=== PATIENT | female | born 1995 | race Caucasian/White ===

== ENCOUNTER 2024-06-02 14:41 | Outpatient (AMB) | payer OTHER, SELFPAY ==
[2024-06-02 14:46] VITALS: BP 122/64; PULSE 75; O2SAT 98; BMI 27.3
--- NOTE | 2024-06-02 14:46 | MHC.PC.OV ---
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 Required: No Allergies pine nut [PINE NUT] Allergy (Severe, Verified 06/02/24 15:05) RASH AND THROAT CLOSING mold [MOLD] Allergy (Unknown, Verified 06/02/24 15:05) Sneezing oxycodone Adverse Reaction (Mild, Verified 06/02/24 15:05) Palpitations mold Allergy (Unknown, Uncoded 06/02/24 15:05) Sneezing Medication List - Last Reconciled 06/02/24 by Yanni Flores PA-C No Known Home Meds Tobacco use date assessed: 06/02/24 Dental Screening Dental Screen Date: 06/02/24 Did you have a dental visit in the last 12 months?: Yes Did you have a dental problem in the last 6 months where you did not have access to dental care?: No Was dental information given to patient?: Patient has dentist HPI establish care HPI Details 28-year-old female coming to the office for the 1st time. Previously being seen by primary care [place] but has not been seen in over 4 years. She follows with gynecology every 6 months for control and abnormal Pap smears. Last week she was having right eye pain and pressure and was seen by eye doctor and referred to eyeglass fitter and dentist. Workup was negative and I pain resolved spontaneously. She has no acute concerns today. 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 1. Little interest or pleasure in doing things: not at all 2. Feeling down, depressed, or hopeless: not at all 3. Trouble falling or staying asleep, or sleeping too much: not at all 4. Feeling tired or having little energy: not at all 5. Poor appetite or overeating: not at all 6. Feeling bad about yourself - or that you are a failure or have let yourself or your family down: not at all 7. Trouble concentrating on things, such as reading the newspaper or watching television: not at all 8. Moving or speaking so slowly that other people could have noticed. Or the opposite - being so fidgety or restless that you have been moving around a lot more than usual: not at all 9. Thoughts that you would be better off or of hurting yourself in some way: not at all Total score: 0 Source: Developed by Drs. Kishor Bonilla, Desiree Alcala, Everette Cunha and colleagues, with an educational bk from [employer]. Thrive Questionnaire Date Thrive assessed: 05/31/24 I am a: Patient What is your living situation today?: I have a steady place to live Within the past 12 months, did the food you bought not last and you didn't have the money to get more?: Never true Within the past 12 months, did you worry whether your food would run out before you got money to buy more?: Never true Do you have trouble paying for medicines?: No Do you have trouble getting transportation to medical appointments?: No Do you have trouble paying your heating and electricity bill?: No Do you have trouble taking care of your child, family member or friend?: No Do you have trouble with day-to-day activities such as bathing, preparing meals, shopping, managing finances, etc.?: No Are you currently unemployed and looking for a job?: No Are you interested in more education?: No Please select the resources that you would like help with: None Currently or been in a relationship where the following occur: No concerns reported THRIVE Score: 0 AUDIT C Alcohol Use Questionnaire (AUDIT-C) 1. How often do you have a drink containing alcohol?: Never 2. How many drinks containing alcohol do you have on a typical day when you are drinking?: 1 or 2 (0) 3. How often do you have six or more drinks on one occasion?: Never Total Score: 0 NIYA-7 AMB Questionnaire NIYA-7 Date NIYA - 7 assessed: 06/02/24 Feeling nervous, anxious, or on edge: 0 = Not at all Not being able to stop or control worryin = Not at all Worrying too much about different things: 0 = Not at all Trouble relaxin = Not at all Being so restless that it is hard to sit still: 0 = Not at all Becoming easily annoyed or irritable: 0 = Not at all Feeling afraid as if something awful might happen: 0 = Not at all Total NIYA-7 score (0-4 normal; 5-9 mild; 10-14 moderate; 15-21 severe): 0 Source: Developed by Drs. Kishor Bonilla, Desiree Alcala, Everette Cunha and colleagues, with an educational bk from [employer]. Review of Systems Const Denies body aches, Denies fatigue, Denies fever(s), Denies frequent falls, Denies headache(s) and Denies weakness Eyes Reports no additional complaints and Denies change in vision ENT Denies dysphagia, Denies dizziness, Denies facial pain, Denies headache(s), Denies nasal congestion and Denies odynophagia Card Denies chest pain, Denies syncope, Denies irregular heart rhythm, Denies leg edema, Denies lightheadedness and Denies dyspnea Resp Denies cough and Denies dyspnea GI Details: Occasional bloating related to foods Denies constipation, Denies dysphagia, Denies dyspepsia, Denies diarrhea, Denies nausea, Denies odynophagia and Denies vomiting Denies urinary frequency, Denies dysuria, Denies urinary hesitancy and Denies urinary urgency Musc Denies back pain and Denies myalgias Skin/Breast Reports system reviewed and no additional complaints, except as documented Neuro Denies dizziness, Denies syncope, Denies frequent falls, Denies headache(s) and Denies weakness Psych Reports no additional complaints Endo Denies fatigue Physical exam (Primary Care) Vital Signs: Last Vital Signs Pulse 75 06/02/24 14:46 BP 122/64 06/02/24 14:46 Pulse Ox 98 06/02/24 14:46 Oxygen Delivery Method Room Air 06/02/24 14:46 BMI result Body Mass Index 27.3 Tobacco/Smoking Status: Tobacco use Status Tobacco use date assessed 06/02/24 06/02/24 14:55 Patient Tobacco Use Status Never used Tobacco 06/02/24 14:55 PHQ-9: PHQ-9 Score PHQ-9: Total score 0 06/02/24 14:59 Thrive Assessment: Date of Thrive Assessment Date Thrive assessed 05/31/24 06/02/24 14:55 Currently or been in a relationship where the following occur: No concerns reported Office Procedures Flu Questionnaire Does the patient have a severe egg allergy?: No Does the patient have severe life threatening allergies?: No Does the patient have a fever or illness today?: No Has the patient ever had Guillain-[place] Syndrome?: No Has the patient ever had any past reaction to a flu shot?: No Immunizations Fluarix Triv [id number] (PF) 45 mcg (15 mcg x 3)/0.5 mL IM syringe Performing Provider: Yanni Flores PA-C [facility] Administered by: RENY Ahn on 06/02/24 14:59 Dose Route Admin Location Dispensed Lot Number Expiration Date [facility] [employer] 0.5 mL IM Left Deltoid 0.5 mL [id number] 02/26/25 [id number] [employer] [facility] VIS Given Date VIS Provided VIS Publication Date 06/02/24 Single Vaccine 21 Eligibility Eligibility Date Funding Source Not [facility] Eligible 06/02/24 Private Coding Level of Care Code Est Pt Prev Care 18-39y(04828) Diagnoses Abnormal Pap smear of cervix R87.619 Annual physical exam Z00.00 Assessment & Plan Assessment & Plan (1) Abnormal Pap smear of cervix: Code(s): R87.619 - Unspecified abnormal cytological findings in specimens from cervix uteri Category: Medical Plan: Continue to follow with gynecology (2) Annual physical exam: Code(s): Z00.00 - Encounter for general adult medical examination without abnormal findings Category: Medical Plan: Patient is up-to-date on all recommended routine screenings and vaccinations for her age. Flu shot was given today. Updated blood work ordered and we will follow up on yearly basis or sooner pending blood work or if new problems arise. Plan This note was constructed using voice recognition software. While every effort has been made to ensure accuracy and confidential secretary, still areas may have been included sometimes these areas may affect the content or meeting of the given symptoms. Total time spent caring for the patient today was 30 minutes. This includes time spent before the visit reviewing the chart, time spent during the visit, and time spent after the visit and documentation. Orders: Orders Influenza [id number] Immunization Today Z23 - Encounter for immunization Complete Blood Count Auto Diff Today Z00.00 - Encounter for general adult medical examination without abnormal findings Free T4 (Free Thyroxine) Today Z00.00 - Encounter for general adult medical examination without abnormal findings TSH reflex Free T4 Today Z00.00 - Encounter for general adult medical examination without abnormal findings Vitamin D 25-OH (D2 and D3) Today Z00.00 - Encounter for general adult medical examination without abnormal findings Comprehensive Met. Panel Today Z00.00 - Encounter for general adult medical examination without abnormal findings Lipid Panel Today Z00.00 - Encounter for general adult medical examination without abnormal findings Vitamin B12 and Folate Today Z00.00 - Encounter for general adult medical examination without abnormal findings
== END 2024-06-02 15:24 | disposition home or self-care (01) ==
PROVIDERS: PCP Internal Medicine
DX: R87.619 Unspecified abnormal cytological findings in specimens from cervix uteri (principal); Z00.00 Encounter for general adult medical examination without abnormal findings; Z23 Encounter for immunization

== ENCOUNTER → 2024-06-02 14:41 | Outpatient (BNVA) | payer OTHER, SELFPAY | PROVIDERS: PCP Internal Medicine | DX: Z00.00 Encounter for general adult medical examination without abnormal findings (principal); R87.619 Unspecified abnormal cytological findings in specimens from cervix uteri; Z23 Encounter for immunization | CPT/HCPCS: 90471; 90656; 96127 ==

== ENCOUNTER 2024-06-09 08:14 | Outpatient (REF) | payer OTHER, SELFPAY ==
[2024-06-09 08:45] LABS: MANUAL DIFF FLAG NO
[2024-06-09 09:08] LABS: Basophils Absolute Auto 0.1 X10*3/uL (0.0-0.2); Basophils Percent Auto 0.9 % (0-2); Eosinophils Absolute Auto 0.2 X10*3/uL (0.0-0.4); Eosinophils Percent Auto 4.5 % (0-4); Hematocrit 41.9 % (37.0-47.0); Hemoglobin 14.1 g/dl (12.0-16.0); Imm Gran Abs Auto 0.01 X10*3/uL (0.00-0.03); Imm Gran Pct Auto 0.2 % (0.0-0.4); Lymphocytes Absolute Auto 2.3 X10*3/uL (1.2-4.9); Lymphocytes Percent Auto 41.7 % (20-40); Mean Corpuscular HGB Conc 33.7 g/dl (31.0-35.0); Mean Corpuscular Hemoglobin 30.6 pg (27.0-33.0); Mean Corpuscular Volume 90.9 fL (80.0-98.0); Mean Platelet Volume 9.8 fL (9.4-12.3); Monocytes Absolute Auto 0.5 X10*3/uL (0.1-1.2); Monocytes Percent Auto 9.1 % (2-11); Neutrophils Absolute Auto 2.4 x10*3/uL (2.0-8.3); Neutrophils Percent Auto 43.6 % (45-73); Platelet Count 271 X10*3/uL (160-400); Red Blood Count 4.61 X10*6/uL (4.20-5.50); Red Cell Distribution Width 13.2 % (11.0-16.0); White Blood Count 5.4 X10*3/uL (4.8-10.8)
[2024-06-09 09:38] LABS: Alanine Aminotransferase 26 U/L (0-31); Albumin Level 4.2 g/dL (3.5-5.0); Alkaline Phosphatase 44 U/L (39-117); Anion Gap 10 (12-20); Aspartate Amino Transferase 22 U/L (5-31); Bilirubin Total 0.6 mg/dL (0.0-1.0); Blood Urea Nitrogen 14 mg/dL (9-16); Calcium 9.9 mg/dL (8.4-10.2); Carbon Dioxide 26 mmol/L (22-29); Chloride 109 mmol/L (96-108); Cholesterol 193 mg/dL (<200); Estimated Glomerular Filt Rate > 60; Glucose Random 92 mg/dL (60-115); HDL Cholesterol 53 mg/dL (>40); LDL Cholesterol Calculated 128 mg/dL (<100); Potassium 4.7 mmol/L (3.3-5.1); Sodium 140 mmol/L (135-145); Total Protein 7.4 g/dL (6.5-8.0); Triglycerides 62 mg/dL (<150)
[2024-06-09 09:59] LABS: Free T4 (Free Thyroxine) 1.08 ng/dL (0.71-1.85); TSH reflex Free T4 1.61 uIU/mL (0.32-4.0)
[2024-06-09 10:02] LABS: Folate 10.9 ng/mL (> or = 4.0); Vitamin B12 409 pg/mL (200-900)
[2024-06-14 14:49] LABS: Vitamin D 25-OH, D2 <4 ng/mL; Vitamin D 25-OH, D3 39 ng/mL; Vitamin D 25-OH, Total 39 ng/mL (30-100)
== END 2024-06-09 08:15 | disposition home or self-care (01) ==
LOC: HO.LAB 08:14
DX: Z00.00 Encounter for general adult medical examination without abnormal findings (principal)
CPT/HCPCS: 36415; 80053; 80061; 82306; 82607; 82746; 84439; 84443; 85025

== ENCOUNTER 2024-11-01 07:56 | Outpatient (REF) | payer OTHER, SELFPAY ==
--- NOTE | ~2024-11-01 | XR_ITS ---
EXAMINATION: XR KNEE 3 VIEWS RIGHT HISTORY: M17.11 - Unilateral primary osteoarthritis, right knee COMPARISON: There are no prior studies available for comparison. FINDINGS: Three views of the right knee are submitted. Osseous mineralization is normal. There is no fracture or dislocation. The joint spaces are preserved. The soft tissues are unremarkable. XR/XR knee RT 3V IMPRESSION: Unremarkable examination of the right knee. Electronically signed by: Kishor Stratton MD 11/03/2024 02:57 PM EST
== END 2024-11-01 07:57 | disposition home or self-care (01) ==
LOC: HO.XRAY 07:56
PROVIDERS: Visit Provider Physician Assistant
DX: M17.11 Unilateral primary osteoarthritis, right knee (principal)
CPT/HCPCS: 73562

== ENCOUNTER 2024-11-01 07:56 | Outpatient (AMB) | payer OTHER, SELFPAY ==
[2024-11-01 08:01] VITALS: BP 108/68; PULSE 76; O2SAT 98; BMI 28.7
--- NOTE | 2024-11-01 08:01 | A.OFFPC_ITS ---
Vital Signs 11/01/24 08:01 Height 5 ft Weight 147 lb BMI 28.7 BP 108/68 Blood Pressure Location Lt brachial Position Sitting Pulse 76 Pulse Source Pulse Oximeter Pulse Oximetry (%) 98 Oxygen Delivery Method Room Air Intake Visit Reasons: Knee pain Allergies pine nut [PINE NUT] Allergy (Severe, Verified 11/01/24 08:12) RASH AND THROAT CLOSING mold [MOLD] Allergy (Unknown, Verified 11/01/24 08:12) Sneezing oxycodone Adverse Reaction (Mild, Verified 11/01/24 08:12) Palpitations mold Allergy (Unknown, Uncoded 11/01/24 08:12) Sneezing Medication List - Last Reconciled 11/01/24 by Kevin Jacob PA-C No Known Home Meds Tobacco use date assessed: 11/01/24 Dental Screening Dental Screen Date: 11/01/24 Did you have a dental visit in the last 12 months?: Yes Did you have a dental problem in the last 6 months where you did not have access to dental care?: No Was dental information given to patient?: Patient has dentist HPI Knee pain HPI Details The patient is a 29-year-old female presenting with knee pain involving her right knee that feels like grinding. The pain, localized to the anterior aspect of the knee, began recently and appears to be exacerbated by increased physical activity. Her family history includes significant knee issues, suggesting a potential hereditary component. There is no reported instability or history of prior imaging. Additionally, she is concerned about her scalp's condition, characterized by itchiness and dandruff, potentially indicating scalp psoriasis. Symptoms intensify in winter and have recently transitioned to include a burning sensation. Previous treatments included the use of various shampoos, which provided inconsistent relief. The patient suspects psoriasis due to her brother's similar diagnosis. 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 1. Little interest or pleasure in doing things: not at all 2. Feeling down, depressed, or hopeless: not at all 3. Trouble falling or staying asleep, or sleeping too much: not at all 4. Feeling tired or having little energy: not at all 5. Poor appetite or overeating: not at all 6. Feeling bad about yourself - or that you are a failure or have let yourself or your family down: not at all 7. Trouble concentrating on things, such as reading the newspaper or watching television: not at all 8. Moving or speaking so slowly that other people could have noticed. Or the opposite - being so fidgety or restless that you have been moving around a lot more than usual: not at all 9. Thoughts that you would be better off or of hurting yourself in some way: not at all Total score: 0 Depression Screening Interpretation: Negative Depression Screening Done: Yes Source: Developed by Drs. Kishor Bonilla, Desiree Alcala, Everette Cunha and colleagues, with an educational bk from [employer]. Thrive Questionnaire Date Thrive assessed: 11/01/24 AUDIT C Alcohol Use Questionnaire (AUDIT-C) 1. How often do you have a drink containing alcohol?: Never 2. How many drinks containing alcohol do you have on a typical day when you are drinking?: 1 or 2 (0) 3. How often do you have six or more drinks on one occasion?: Never Total Score: 0 NIYA-7 AMB Questionnaire NIYA-7 Date NIYA - 7 assessed: 11/01/24 Feeling nervous, anxious, or on edge: 0 = Not at all Not being able to stop or control worryin = Not at all Worrying too much about different things: 0 = Not at all Trouble relaxin = Not at all Being so restless that it is hard to sit still: 0 = Not at all Becoming easily annoyed or irritable: 0 = Not at all Feeling afraid as if something awful might happen: 0 = Not at all Total NIYA-7 score (0-4 normal; 5-9 mild; 10-14 moderate; 15-21 severe): 0 Source: Developed by Drs. Kishor Bonilla, Desiree Alcala, Everette Cunha and colleagues, with an educational bk from [employer]. Review of Systems Const Denies headache(s) Eyes Denies loss of vision ENT Denies vertigo, Denies dizziness, Denies headache(s) and Denies sore throat Card Denies chest pain, Denies leg edema and Denies lightheadedness Resp Denies cough, Denies hemoptysis and Denies wheezing GI Denies abdominal pain, Denies melena, Denies constipation, Denies diarrhea and Denies vomiting Denies urinary frequency, Denies dysuria and Denies urinary urgency Musc Denies arthralgias, Denies joint swelling, Denies numbness and Denies tingling Neuro Denies Abnormal speech present, Denies behavioral changes, Denies vertigo, Denies dizziness, Denies headache(s), Denies loss of vision, Denies memory loss, Denies numbness and Denies tingling Psych Denies anxiety, Denies behavioral changes, Denies depression, Denies memory loss and Denies panic attacks Brian/Lymph Denies easy bleeding and Denies easy bruising Aller/Immun Denies wheezing Physical exam (Primary Care) Vital Signs: Last Vital Signs Pulse 76 11/01/24 08:01 BP 108/68 11/01/24 08:01 Pulse Ox 98 11/01/24 08:01 Oxygen Delivery Method Room Air 11/01/24 08:01 BMI result Body Mass Index 28.7 Tobacco/Smoking Status: Tobacco use Status Tobacco use date assessed 11/01/24 11/01/24 08:08 Patient Tobacco Use Status Never used Tobacco 11/01/24 08:08 Tobacco use type Cigarette 11/01/24 08:08 e-Cigarette/Vaping Use Never Used 11/01/24 08:08 PHQ-9: PHQ-9 Score PHQ-9: Total score 0 11/01/24 08:08 Depression Screening Interpretation: Negative Thrive Assessment: Date of Thrive Assessment Date Thrive assessed 11/01/24 11/01/24 08:08 Const General: healthy appearing, no acute distress, alert and awake Nutritional Appearance: well nourished Orientation/consciousness: oriented to person, oriented to place and oriented to time HENMT Other: SMALL SCAB AREAS OVER ENTIRE SCALP. NOTED DANDRIFF Ears: TM's normal bilaterally General nose exam: Normal nasal mucous membranes and turbinates present Eyes Conjunctivae: conjunctivae normal Sclerae: sclerae normal Pupils: Equal, round and reactive pupils present Neck Neck: Yes no lymphadenopathy and Yes no JVD Thyroid: Thyroid normal Carotids: no bruits Resp Effort & Inspection: normal respiratory effort and not tachypneic Auscultation: no crackles, no rales, no rhonchi and no wheezes Cardio Rate: regular rate Rhythm: regular rhythm Heart sounds: no murmurs and normal S1 and S2 GI Palpation (GI): Soft to palpation, nontender, no hepatomegaly and no splenomegaly Auscultation: normal bowel sounds Skin General skin exam: no rashes or lesions noted and dry skin Neuro General: oriented to person, oriented to place and oriented to time Cranial nerves: Yes Equal, round and reactive pupils present Speech: No Abnormal speech present Gait exam (Neuro): Normal gait present Motor exam (neuro): no tremor noted Extrem Other: RIGHT KNEE: FULL RANGE OF MOTION, NO LIGAMENTOUS LAXITY NOTED. NOTED CREPITUS WITH FLEXING AND EXTENSION OF THE RIGHT KNEE Right upper extremity: full ROM Left upper extremity: full ROM Right lower extremity: full ROM; no edema Left lower extremity: full ROM; no edema Psych Mental Status: mental status grossly normal Speech and movement: Normal speech and movement present Affect: normal affect Attitude: cooperative Thought process: Normal thought process present Coding Level of Care Code Est Pt Level 4 (29830) Diagnoses Primary osteoarthritis of right knee M17.11 Osteoarthritis type: primary Seborrhea capitis L21.0 Assessment & Plan Assessment & Plan (1) Osteoarthritis of right knee: Code(s): M17.11 - Unilateral primary osteoarthritis, right knee Category: Medical Qualifiers: Osteoarthritis type: primary Qualified Code(s): M17.11 - Unilateral primary osteoarthritis, right knee Plan: Initiated an order for an x-ray of the right knee to evaluate structural integrity. Discussed referral to orthopedics for further examination with potential physical therapy recommendations, depending on x-ray findings. (2) Seborrhea capitis: Code(s): L21.0 - Seborrhea capitis Category: Medical Plan: Prescribed a medicated shampoo for symptom relief. Arranged referral to dermatology for exploration of psoriasis likelihood and potential treatment adjustments. Orders: Orders XR knee RT 3V Today M17.11 - Unilateral primary osteoarthritis, right knee Referrals Dermatology Referral L21.0 - Seborrhea capitis Orthopedics Referral M17.11 - Unilateral primary osteoarthritis, right knee Medications: New ketoconazole 2% 1 appl topical 3XW 4 weeks 120 mL 0RF L21.0 - Seborrhea capitis
== END 2024-11-01 08:23 | disposition home or self-care (01) ==
PROVIDERS: Visit Provider Physician Assistant
DX: M17.11 Unilateral primary osteoarthritis, right knee (principal); L21.0 Seborrhea capitis

== ENCOUNTER → 2024-11-01 08:40 | Outpatient (BNV) | payer OTHER, SELFPAY | PROVIDERS: Visit Provider Radiology Diagnostic Radiology | DX: M17.11 Unilateral primary osteoarthritis, right knee (principal) | CPT/HCPCS: 73562 ==

== ENCOUNTER 2024-12-12 14:43 | Outpatient (AMB) | payer OTHER, SELFPAY ==
--- NOTE | 2024-12-12 14:50 | A.OFFVIS_ITS ---
Vital Signs 12/12/24 14:51 Height 5 ft Weight 147 lb BMI 28.7 Intake Visit Reasons: Right knee pain Intake Note: Nia is a 29 year old female who presents with complaints of intermittent pain along the anterior aspect of her right knee. The patient states that she aggravated her knee while doing squats at the gym. She denies any locking or giving way. She has modified her exercise program. She denies any locking or giving way. The patient does report an intermittent clicking sensation in her right knee. Allergies pine nut [PINE NUT] Allergy (Severe, Verified 12/12/24 14:56) RASH AND THROAT CLOSING mold [MOLD] Allergy (Unknown, Verified 12/12/24 14:56) Sneezing oxycodone Adverse Reaction (Mild, Verified 12/12/24 14:56) Palpitations mold Allergy (Unknown, Uncoded 12/12/24 14:56) Sneezing Medication List - Last Reconciled 12/12/24 by Sven Rosenberg MD ketoconazole 2% 1 appl topical 3XW 4 weeks triamcinolone acetonide 0.1% appl topical PFSH Medical History Hx LEEP (loop electrosurgical excision procedure), cervix, Family History Mother Transverse myelitis Maternal Grandfather Prostate cancer Maternal Grandmother Thyroid cancer Hypertension Father Hypertension Hypercholesteremia Ulcerative colitis Paternal Aunt Breast cancer Paternal Grandmother Breast cancer Social History Housing: House Patient Tobacco Use Status: Never used Tobacco Tobacco use type: Cigarette e-Cigarette/Vaping Use: Never Used Second Hand Smoke Exposure: No service: No Current occupational status: employed 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 Cognitive needs: No Hearing needs: No Vision needs: Yes Physical Exam Vital Signs: BMI result Body Mass Index 28.7 Const Other: Well-nourished well-developed very friendly female awake alert and oriented x3 in no acute distress Extrem Other: Bilateral lower extremity examination shows good capillary refill, no skin lesions noted, normal sensation light touch Right knee examination shows a minimal effusion, minimal crepitus with range of motion, tenderness along her patellar tendon and medial joint line, positive Evelyne's test, no instability Results Reviewed Results Reviewed: X-rays of the patient's right knee show no significant bony abnormalities Assessment & Plan Assessment & Plan (1) Right anterior knee pain: Code(s): M25.561 - Pain in right knee Category: Medical (2) Right knee pain: Code(s): M25.561 - Pain in right knee Plan Ms. Vázquez presents with intermittent right knee pain most likely due to patellar tendinitis as well as possible medial meniscus tearing. I had a lengthy discussion with the patient regarding the treatment options. I did give her a prescription to go to formal physical therapy. She will follow up with me on an as-needed basis should her symptoms not plateau at an unacceptable level over the next few months. If her mechanical symptoms do worsen in the future I will order an MRI to evaluate the status of her medial meniscus. Feel free to call me at any time should questions regarding her orthopedic management arise. I spent 20 minutes in reviewing the patient's records and imaging studies, seeing the patient and documenting in the medical record. Orders: Orders PT Evaluation and Treatment 12/12/24 M25.561 - Pain in right knee Coding Level of Care Code New Pt Level 3 (16109) Complex EM visit Add On G2211 Diagnoses Right anterior knee pain M25.561 Right knee pain M25.561
[2024-12-12 14:51] VITALS: BMI 28.7
== END 2024-12-12 15:18 | disposition home or self-care (01) ==
LOC: HO.HOS 14:43
PROVIDERS: Visit Provider Orthopaedic Surgery
DX: M25.561 Pain in right knee (principal)
CPT/HCPCS: 99203

== ENCOUNTER 2025-05-01 15:30 | Outpatient (AMB) | payer OTHER, SELFPAY ==
--- NOTE | 2025-05-01 15:33 | MHC.PC.OV ---
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 Accompanied by: Self / Same As Patient Allergies pine nut (PINE NUT) Allergy (Severe, Verified 05/01/25 15:39) RASH AND THROAT CLOSING mold (MOLD) Allergy (Unknown, Verified 05/01/25 15:39) Sneezing oxycodone Adverse Reaction (Mild, Verified 05/01/25 15:39) Palpitations mold Allergy (Unknown, Uncoded 12/12/24 14:56) Sneezing Tobacco use date assessed: 05/01/25 Dental Screening Dental Screen Date: 05/01/25 Did you have a dental visit in the last 12 months?: No Did you have a dental problem in the last 6 months where you did not have access to dental care?: No Was dental information given to patient?: No HPI lyme disease HPI Details Patient is a 29 year female here today for problem visit. She reports a tick bite on March 19, after which the tick was sent for testing and returned negative for Lyme disease. Initially, there was no bullseye rash, but the area was red for about a month before resolving. Approximately two weeks ago, she began experiencing tingling in her hands and toenails, which has persisted. She also reports feeling weaker, impacting her ability to perform Pilates exercises. The patient has a history of high cholesterol, with previous levels recorded at 193 mg/dL for total cholesterol and 128 mg/dL for LDL. She does report seeing an urgent care and getting a prophylactic dose of doxycycline and on the time of her tick bite She does not smoke but consumes alcohol occasionally, and her father has a history of lipid disorder. [facility] Medical History Hx LEEP (loop electrosurgical excision procedure), cervix, Family History Mother Transverse myelitis Maternal Grandfather Prostate cancer Maternal Grandmother Thyroid cancer Hypertension Father Hypertension Hypercholesteremia Ulcerative colitis Paternal Aunt Breast cancer Paternal Grandmother Breast cancer Social History Housing: House Patient Tobacco Use Status: Never used Tobacco Tobacco use type: Cigarette e-Cigarette/Vaping Use: Never Used Second Hand Smoke Exposure: No service: No Current occupational status: employed 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 1. Little interest or pleasure in doing things: not at all 2. Feeling down, depressed, or hopeless: not at all 3. Trouble falling or staying asleep, or sleeping too much: not at all 4. Feeling tired or having little energy: several days 5. Poor appetite or overeating: not at all 6. Feeling bad about yourself - or that you are a failure or have let yourself or your family down: not at all 7. Trouble concentrating on things, such as reading the newspaper or watching television: not at all 8. Moving or speaking so slowly that other people could have noticed. Or the opposite - being so fidgety or restless that you have been moving around a lot more than usual: not at all 9. Thoughts that you would be better off or of hurting yourself in some way: not at all Total score: 1 Depression Screening Interpretation: Negative Depression Screening Done: Yes 27571 - PHQ-9 Billing: Yes Source: Developed by Drs. Kishor Bonilla, Desiree Alcala, Everette Cunha and colleagues, with an educational bk from [employer]. Thrive Questionnaire Date Thrive assessed: 05/01/25 I am a: Patient What is your living situation today?: I have a steady place to live Within the past 12 months, did the food you bought not last and you didn't have the money to get more?: Never true Within the past 12 months, did you worry whether your food would run out before you got money to buy more?: Never true Do you have trouble paying for medicines?: No Do you have trouble getting transportation to medical appointments?: No Do you have trouble paying your heating and electricity bill?: No Do you have trouble taking care of your child, family member or friend?: No Do you have trouble with day-to-day activities such as bathing, preparing meals, shopping, managing finances, etc.?: No Are you currently unemployed and looking for a job?: No Are you interested in more education?: No Please select the resources that you would like help with: None Currently or been in a relationship where the following occur: No concerns reported THRIVE Score: 0 AUDIT C Alcohol Use Questionnaire (AUDIT-C) 1. How often do you have a drink containing alcohol?: Never Total Score: 0 NIYA-7 AMB Questionnaire NIYA-7 Date NIYA - 7 assessed: 05/01/25 Feeling nervous, anxious, or on edge: 0 = Not at all Not being able to stop or control worryin = Not at all Worrying too much about different things: 0 = Not at all Trouble relaxin = Not at all Being so restless that it is hard to sit still: 0 = Not at all Becoming easily annoyed or irritable: 0 = Not at all Feeling afraid as if something awful might happen: 0 = Not at all Total NIYA-7 score (0-4 normal; 5-9 mild; 10-14 moderate; 15-21 severe): 0 Source: Developed by Drs. Kishor Bonilla, Desiree Alcala, Everette Cunha and colleagues, with an educational bk from [employer]. Review of Systems Const Denies headache(s) Eyes Denies loss of vision ENT Denies vertigo, Denies dizziness, Denies headache(s) and Denies sore throat Card Denies chest pain, Denies leg edema and Denies lightheadedness Resp Denies cough, Denies hemoptysis and Denies wheezing GI Denies abdominal pain, Denies melena, Denies constipation, Denies diarrhea and Denies vomiting Denies urinary frequency, Denies dysuria and Denies urinary urgency Musc Denies arthralgias, Denies joint swelling, Denies numbness and Denies tingling Neuro Denies Abnormal speech present, Denies behavioral changes, Denies vertigo, Denies dizziness, Denies headache(s), Denies loss of vision, Denies memory loss, Denies numbness and Denies tingling Psych Denies anxiety, Denies behavioral changes, Denies depression, Denies memory loss and Denies panic attacks Brian/Lymph Denies easy bleeding and Denies easy bruising Aller/Immun Denies wheezing Physical exam (Primary Care) Vital Signs: Last Vital Signs Temp 97.1 F 05/01/25 15:34 Pulse 77 05/01/25 15:34 Resp 18 05/01/25 15:34 BP 100/62 05/01/25 15:34 Pulse Ox 97 05/01/25 15:34 Oxygen Delivery Method Room Air 05/01/25 15:34 BMI result Body Mass Index 28.5 Tobacco/Smoking Status: Tobacco use Status Tobacco use date assessed 05/01/25 05/01/25 15:43 Patient Tobacco Use Status Never used Tobacco 05/01/25 15:43 Tobacco use type Cigarette 05/01/25 15:43 e-Cigarette/Vaping Use Never Used 05/01/25 15:43 PHQ-9: PHQ-9 Score PHQ-9: Total score 1 05/01/25 15:43 Depression Screening Interpretation: Negative Thrive Assessment: Date of Thrive Assessment Date Thrive assessed 05/01/25 05/01/25 15:43 Currently or been in a relationship where the following occur: No concerns reported Const General: healthy appearing, no acute distress, alert and awake Nutritional Appearance: well nourished Orientation/consciousness: oriented to person, oriented to place and oriented to time HENMT Ears: TM's normal bilaterally General nose exam: Normal nasal mucous membranes and turbinates present Eyes Conjunctivae: conjunctivae normal Sclerae: sclerae normal Pupils: Equal, round and reactive pupils present Neck Neck: Yes no lymphadenopathy and Yes no JVD Thyroid: Thyroid normal Carotids: no bruits Resp Effort & Inspection: normal respiratory effort and not tachypneic Auscultation: no crackles, no rales, no rhonchi and no wheezes Cardio Rate: regular rate Rhythm: regular rhythm Heart sounds: no murmurs and normal S1 and S2 GI Palpation (GI): Soft to palpation, nontender, no hepatomegaly and no splenomegaly Auscultation: normal bowel sounds Skin General skin exam: no rashes or lesions noted and dry skin Neuro General: oriented to person, oriented to place and oriented to time Cranial nerves: Yes Equal, round and reactive pupils present Speech: No Abnormal speech present Gait exam (Neuro): Normal gait present Motor exam (neuro): no tremor noted Extrem Right upper extremity: full ROM Left upper extremity: full ROM Right lower extremity: full ROM; no edema Left lower extremity: full ROM; no edema Psych Mental Status: mental status grossly normal Speech and movement: Normal speech and movement present Affect: normal affect Attitude: cooperative Thought process: Normal thought process present Coding Level of Care Code Est Pt Level 4 (34389) Diagnoses Tick bite of right foot, subsequent encounter S90.861D; W57.XXXD Encounter type: subsequent encounter Laterality: right Paresthesia of both hands R20.2 Family history of high cholesterol Z83.42 Additional Codes PHQ-9 - 55169 - PHQ-9 Billing: Yes ([id number]) Assessment & Plan Assessment & Plan (1) Tick bite of foot: Code(s): S90.869A - Insect bite (nonvenomous), unspecified foot, initial encounter; W57.XXXA - Bitten or stung by nonvenomous insect and other nonvenomous arthropods, initial encounter Category: Medical Qualifiers: Encounter type: subsequent encounter Laterality: right Qualified Code(s): S90.861D - Insect bite (nonvenomous), right foot, subsequent encounter; W57.XXXD - Bitten or stung by nonvenomous insect and other nonvenomous arthropods, subsequent encounter Plan: The patient will undergo a blood test for Lyme disease, including a Western blot if initial results are positive. A referral to a Lyme specialist in [place] was discussed for further evaluation and management. (2) Paresthesia of both hands: Code(s): R20.2 - Paresthesia of skin Category: Medical Plan: As above (3) Family history of high cholesterol: Code(s): Z83.42 - Family history of familial hypercholesterolemia Category: Medical Plan: Prior LDL slightly elevated. Patient does not cardiovascular risks. A repeat lipid panel will be conducted to assess current cholesterol levels, with fasting required prior to testing. The patient is advised to maintain a healthy diet and exercise regimen to manage cholesterol levels. Orders: Orders Tick-borne Disease Molecular Today S90.861D - Insect bite (nonvenomous), right foot, subsequent encounter, W57.XXXD - Bitten or stung by nonvenomous insect and other nonvenomous arthropods, subsequent encounter Lyme IgG/IgM w/reflex to WB Today S90.861D - Insect bite (nonvenomous), right foot, subsequent encounter, W57.XXXD - Bitten or stung by nonvenomous insect and other nonvenomous arthropods, subsequent encounter Complete Blood Count no Diff Today S90.861D - Insect bite (nonvenomous), right foot, subsequent encounter, W57.XXXD - Bitten or stung by nonvenomous insect and other nonvenomous arthropods, subsequent encounter Erythrocyte Sedimentation Rate Today R20.2 - Paresthesia of skin Lipid Panel Today Z83.42 - Family history of familial hypercholesterolemia Comprehensive Dorr. Panel Fast Today Z83.42 - Family history of familial hypercholesterolemia
[2025-05-01 15:34] VITALS: BP 100/62; PULSE 77; RESP 18; TEMP 36.2; O2SAT 97; BMI 28.5
--- OUTSIDE RECORDS SUMMARY | 2025-05-01 16:31 | XMS_ITS | Clinical Summary ---
Author Organization [facility] Address [address] [address] Phone Care Team Providers Care Sight Effects Specialist Name Role Phone Pcp, Unknown Primary Care Provider Unavailabl e Allergies No known active allergies Medications levonorgestrel-eth inyl estradiol (AVIANE,ALESSE,LES MYRA) 0.1-0.02 mg per tablet 01/16/2025 Active Encounters Date Type Department Care Team Description 03/19/2025 8:00 AM EDT Office Visit [facility] at [address] [address] [place], [place] Tick bite of toe of right foot, unspecified toe, initial encounter (Primary Dx) from Last 3 Months Social History Tobacco Use Types Packs/Day Years Used Date Smoking Tobacco: Never Assessed Education Answer Date Recorded Are you interested in more education? Not on izabella e 05/26/2024 Are you concerned about learning? Not on file 05/26/2024 No 05/26/2024 No 05/26/2024 Digital Access Answer Date Recorded No 05/26/2024 No 05/26/2024 Reliable internet access at home? Not on file 05/26/2024 Device with a working camera? Not on file Comments Unknown Sex and Gender Information Value Date Recorded Sex Assigned at Not on file Legal Sex Female 10:39 AM EDT Gender Identity Not on file Sexual Orientation Not on file Last Filed Vital Signs Vital Sign Reading Time Taken Comments Blood Pressure 122/78 03/19/2025 8:03 AM EDT Pulse 80 03/19/2025 8:03 AM EDT Temperature 36.1 C (97 F) 03/19/2025 8:03 AM EDT Respiratory Rate 18 03/19/2025 8:03 AM EDT Oxygen Saturation 100% 03/19/2025 8:03 AM EDT Inhaled Oxygen Concentration - - Weight - - Height - - Body Mass Index - - Plan of Treatment Upcoming Encounters Date Type Department Care Team (Late st Contact Info) Description 06/05/2025 3:00 PM EDT Office Visit [facility] [address] [place] [address] Belia Mathias [address] [facility], [address] [place] [address] [email or web address] Health Maintenance Due Date Last Done Comments DEPRESSION SCREENING 2007 SMOKING Hx and SMOKELESS TOBACCO SCREENING 2008 HEPATITIS C SCREENING 2013 HIV ONE-TIME SCREENING (18-6 5 YEARS) 2013 PAP SMEAR 2016 COVID-19 VACCINE (4 - 2023-2 5 season) 2024 09/08/2021, 12/18/2020, 11/27/2020 Adult Td,Tdap Booster 04/10/2025 04/10/2015 , 04/11/2013 HEPATITIS A VACCINES Aged Out No long er eligible based on patient's age to complete this topic HIB VACCINES Aged Out No longer eligi ble based on patient's age to complete this topic MENINGOCOCCAL VACCINES (ACWY) Aged Out No longer eligible based on patient's age to complete this topic MENINGOCOCCAL VACCINES (B) Aged Out N o longer eligible based on patient's age to complete this topic PNEUMOCOCCAL VACCINES (0-49 years) Aged Out No longer eligible b ased on patient's age to complete this topic Medical Devices Not on file Insurance [employer]MIN[employer]AT[employer]MINISTRATORS [place] [id number] [employer] Care Teams Sight Effects Specialist Relationship Specialty Start Date End Date Pcp, Unknown PCP - General 05/26/24 Additional Source Comments The information contained in this document represents components of the legal health record. It is not the complete legal health record.[facility]
== END 2025-05-01 15:56 | disposition home or self-care (01) ==
LOC: HO.HMCH 15:31
PROVIDERS: Visit Provider Physician Assistant
DX: R20.2 Paresthesia of skin (principal); S90.861A Insect bite (nonvenomous), right foot, initial encounter; W57.XXXD Bitten or stung by nonvenomous insect and other nonvenomous arthropods, subsequent encounter; Z83.42 Family history of familial hypercholesterolemia

== ENCOUNTER → 2025-05-01 15:30 | Outpatient (BNVA) | payer OTHER, SELFPAY | PROVIDERS: Visit Provider Physician Assistant | DX: S90.861D Insect bite (nonvenomous), right foot, subsequent encounter (principal); R20.2 Paresthesia of skin; W57.XXXD Bitten or stung by nonvenomous insect and other nonvenomous arthropods, subsequent encounter; Z83.42 Family history of familial hypercholesterolemia | CPT/HCPCS: 96127 ==

== ENCOUNTER 2025-05-02 08:00 | Outpatient (REF) | payer OTHER, SELFPAY ==
--- OUTSIDE RECORDS SUMMARY | 2025-05-02 08:06 | XMS_ITS | Clinical Summary ---
Author Organization [facility] Address [address] [address] Phone Care Team Providers Care Clinical Sciences Professor Name Role Phone Pcp, Unknown Primary Care Provider Unavailabl e Allergies No known active allergies Medications levonorgestrel-eth inyl estradiol (AVIANE,ALESSE,LES MYRA) 0.1-0.02 mg per tablet 01/16/2025 Active Encounters Date Type Department Care Team Description 03/19/2025 8:00 AM EDT Office Visit [facility] at [address] [address] [place], JOSSIE Tick bite of toe [...] 3:00 PM EDT Office Visit [facility] [address] [place] [address] Belia Mathias [address] [facility], [address] [place] [address] .[facility] Maintenance Due Date Last Done Comments [...] topic Medical Devices Not on file Insurance [employer] ADMINISTRATORS [place] [id number] [employer] Care Teams Clinical Sciences Professor Relationship Specialty Start Date End Date Pcp, Unknown PCP - General 05/26/24 Additional Source Comments The information contained in this document represents components of the legal health record. It is not the complete legal health record.[facility]
[2025-05-02 09:22] LABS: White Blood Count 5.6 X10*3/uL (4.8-10.8)
[2025-05-02 09:23] LABS: Hematocrit 39.6 % (37.0-47.0); Hemoglobin 13.4 g/dl (12.0-16.0); Mean Corpuscular HGB Conc 33.8 g/dl (31.0-35.0); Mean Corpuscular Hemoglobin 30.3 pg (27.0-33.0); Mean Corpuscular Volume 89.6 fL (80.0-98.0); NRBC Abs Auto 0.000 X10*3/uL (0.0-0.012); NRBC Pct Auto 0.0 /100WBC (0.0-0.2); Platelet Count 266 X10*3/uL (160-400); Red Blood Count 4.42 X10*6/uL (4.20-5.50)
[2025-05-02 09:58] LABS: Alanine Aminotransferase 20 U/L (0-31); Albumin Level 4.3 g/dL (3.5-5.0); Alkaline Phosphatase 39 U/L (39-117); Anion Gap 11 (12-20); Aspartate Amino Transferase 25 U/L (5-31); Blood Urea Nitrogen 16 mg/dL (9-16); Calcium 8.9 mg/dL (8.4-10.2); Carbon Dioxide 24 mmol/L (22-29); Chloride 108 mmol/L (96-108); Cholesterol 174 mg/dL (<200); Estimated Glomerular Filt Rate > 60; HDL Cholesterol 50 mg/dL (>40); Potassium 4.1 mmol/L (3.3-5.1); Sodium 139 mmol/L (135-145); Total Protein 7.2 g/dL (6.5-8.0); Triglycerides 67 mg/dL (<150)
[2025-05-03 21:13] LABS: A. Phagocytphilium DNA,RT-PCR NOT DETECTED (NOT DETECTED); Babesia Microti DNA, RT-PCR NOT DETECTED (NOT DETECTED); Borrelia Miyamotoi,DNA RT-PCR NOT DETECTED (NOT DETECTED); E.Chaffeensis DNA RT-PCR NOT DETECTED (NOT DETECTED); Lyme(Borrelia ssp)DNA RT-PCR NOT DETECTED (NOT DETECTED)
[2025-05-04 02:09] LABS: Lyme Abs Screen <0.90 index
== END 2025-05-02 08:01 | disposition home or self-care (01) ==
LOC: HO.LAB 08:00
PROVIDERS: PCP Physician Assistant; Visit Provider Physician Assistant
DX: Z01.84 Encounter for antibody response examination (principal); S90.861D Insect bite (nonvenomous), right foot, subsequent encounter; R20.2 Paresthesia of skin; W57.XXXD Bitten or stung by nonvenomous insect and other nonvenomous arthropods, subsequent encounter; Z83.42 Family history of familial hypercholesterolemia
CPT/HCPCS: 36415; 80053; 80061; 85027; 85652; 86617; 86618; 87468; 87469; 87478; 87484; 87798

== ENCOUNTER 2025-06-04 15:41 | Outpatient (AMB) | payer OTHER, SELFPAY ==
[2025-06-04 15:45] VITALS: BP 122/72; PULSE 83; TEMP 36.3; O2SAT 99; BMI 28.9
--- NOTE | 2025-06-04 15:45 | A.OFFPC_ITS ---
Vital Signs 06/04/25 15:45 Height 5 ft Weight 148 lb BMI 28.9 BP 122/72 Blood Pressure Location Lt brachial Position Sitting Pulse 83 Pulse Source Pulse Oximeter Temp 97.3 F Temp Source Temporal Artery Scan Pulse Oximetry (%) 99 Oxygen Delivery Method Room Air Intake Visit Reasons: pe Allergies pine nut (PINE NUT) Allergy (Severe, Verified 06/04/25 16:14) RASH AND THROAT CLOSING mold (MOLD) Allergy (Unknown, Verified 06/04/25 16:14) Sneezing oxycodone Adverse Reaction (Mild, Verified 06/04/25 16:14) Palpitations mold Allergy (Unknown, Uncoded 06/04/25 16:14) Sneezing Medication List - Last Reconciled 06/04/25 by Yanni Flores PA-C ketoconazole 2% 1 appl topical 3XW 4 weeks levonorgestrel-ethinyl estrad 0.1-20 mg-mcg tabs PO Tobacco use date assessed: 06/04/25 Dental Screening Dental Screen Date: 05/01/25 Did you have a dental visit in the last 12 months?: Yes Did you have a dental problem in the last 6 months where you did not have access to dental care?: No Was dental information given to patient?: Patient has dentist HPI pe HPI Details 29 year old female with no relevant past medical history last seen 04/2025 by Cecil coming in for annual exam. Persistent erythema and pruritus in a small area on the left foot since February, not resolved with regular lotion application. Seasonal allergies exacerbated by environmental factors, managed with [id number] medications. Difficulty staying asleep, managed with melatonin plan to trial Hydroxyzine pap smear: [facility] md urologist appt 06/2025 eye doctor: [facility] vaccines: TDAP due but out of stock [facility] Medical History Hx LEEP (loop electrosurgical excision procedure), cervix, Family History Mother Transverse myelitis Maternal Grandfather Prostate cancer Maternal Grandmother Thyroid cancer Hypertension Father Hypertension Hypercholesteremia Ulcerative colitis Paternal Aunt Breast cancer Paternal Grandmother Breast cancer Social History Housing: House Patient Tobacco Use Status: Never used Tobacco Tobacco use type: Cigarette e-Cigarette/Vaping Use: Never Used Second Hand Smoke Exposure: No service: No Current occupational status: employed 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 1. Little interest or pleasure in doing things: not at all 2. Feeling down, depressed, or hopeless: not at all 3. Trouble falling or staying asleep, or sleeping too much: not at all 4. Feeling tired or having little energy: several days 5. Poor appetite or overeating: not at all 6. Feeling bad about yourself - or that you are a failure or have let yourself or your family down: not at all 7. Trouble concentrating on things, such as reading the newspaper or watching television: not at all 8. Moving or speaking so slowly that other people could have noticed. Or the opposite - being so fidgety or restless that you have been moving around a lot more than usual: not at all 9. Thoughts that you would be better off or of hurting yourself in some way: not at all Total score: 1 Depression Screening Interpretation: Negative Depression Screening Done: Yes Source: Developed by Drs. Kishor Bonilla, Desiree Alcala, Everette Cunha and colleagues, with an educational bk from [employer]. Thrive Questionnaire Date Thrive assessed: 05/01/25 I am a: Patient What is your living situation today?: I have a steady place to live Within the past 12 months, did the food you bought not last and you didn't have the money to get more?: Never true Within the past 12 months, did you worry whether your food would run out before you got money to buy more?: Never true Do you have trouble paying for medicines?: No Do you have trouble getting transportation to medical appointments?: No Do you have trouble paying your heating and electricity bill?: No Do you have trouble taking care of your child, family member or friend?: No Do you have trouble with day-to-day activities such as bathing, preparing meals, shopping, managing finances, etc.?: No Are you currently unemployed and looking for a job?: No Are you interested in more education?: No Please select the resources that you would like help with: None Currently or been in a relationship where the following occur: No concerns reported THRIVE Score: 0 AUDIT C Alcohol Use Questionnaire (AUDIT-C) 1. How often do you have a drink containing alcohol?: Never 3. How often do you have six or more drinks on one occasion?: Never Total Score: 0 NIYA-7 AMB Questionnaire NIYA-7 Date NIYA - 7 assessed: 05/01/25 Feeling nervous, anxious, or on edge: 0 = Not at all Not being able to stop or control worryin = Not at all Worrying too much about different things: 0 = Not at all Trouble relaxin = Not at all Being so restless that it is hard to sit still: 0 = Not at all Becoming easily annoyed or irritable: 0 = Not at all Feeling afraid as if something awful might happen: 0 = Not at all Total NIYA-7 score (0-4 normal; 5-9 mild; 10-14 moderate; 15-21 severe): 0 Source: Developed by Drs. Kishor Bonilla, Desiree Alcala, Everette Cunha and colleagues, with an educational bk from [employer]. Review of Systems Const Denies body aches, Denies fatigue, Denies fever(s), Denies frequent falls, Denies headache(s) and Denies weakness Eyes Reports no additional complaints and Denies change in vision ENT Denies dysphagia, Denies dizziness, Denies facial pain, Denies headache(s), Denies nasal congestion and Denies odynophagia Card Denies chest pain, Denies syncope, Denies irregular heart rhythm, Denies leg edema, Denies lightheadedness and Denies dyspnea Resp Denies cough and Denies dyspnea GI Denies constipation, Denies dysphagia, Denies dyspepsia, Denies diarrhea, Denies nausea, Denies odynophagia and Denies vomiting Denies urinary frequency, Denies dysuria, Denies urinary hesitancy and Denies urinary urgency Musc Denies back pain and Denies myalgias Skin/Breast Reports system reviewed and no additional complaints, except as documented Neuro Denies dizziness, Denies syncope, Denies frequent falls, Denies headache(s) and Denies weakness Psych Reports no additional complaints Endo Denies fatigue Physical exam (Primary Care) Vital Signs: Last Vital Signs Temp 97.3 F 06/04/25 15:45 Pulse 83 06/04/25 15:45 BP 122/72 06/04/25 15:45 Pulse Ox 99 06/04/25 15:45 Oxygen Delivery Method Room Air 06/04/25 15:45 BMI result Body Mass Index 28.9 Tobacco/Smoking Status: Tobacco use Status Tobacco use date assessed 06/04/25 06/04/25 15:48 Patient Tobacco Use Status Never used Tobacco 06/04/25 15:48 Tobacco use type Cigarette 06/04/25 15:48 e-Cigarette/Vaping Use Never Used 06/04/25 15:48 PHQ-9: PHQ-9 Score PHQ-9: Total score 1 06/04/25 15:48 Depression Screening Interpretation: Negative Thrive Assessment: Date of Thrive Assessment Date Thrive assessed 05/01/25 06/04/25 15:48 Currently or been in a relationship where the following occur: No concerns reported Const General: cooperative, healthy appearing, comfortable and no acute distress Orientation/consciousness: patient oriented x3 HENMT Head: Yes normocephalic Ears: hearing grossly normal bilaterally, external ears normal, TM's normal bilaterally and EAC's normal General nose exam: Normal external nose present Face and sinus: Yes normal facial exam and Yes sinuses nontender Mouth: Normal oral and palatal mucosa present and tongue normal Throat: Yes posterior oropharynx normal Eyes General: appearance normal, both eyes and all related structures Conjunctivae: conjunctivae normal Pupils: Equal, round and reactive pupils present EOM: EOMs intact bilaterally and No Nystagmus present Neck Neck: Yes normal visual inspection, Yes full ROM and Yes no lymphadenopathy Chest Chest palpation & inspection: normal inspection of the chest Resp Effort & Inspection: normal respiratory effort Auscultation: clear to auscultation bilaterally, no crackles, no rales, no rhonchi, no wheezes and breath sounds present Cardio Rate: regular rate Rhythm: regular rhythm Peripheral pulses: radial pulses present and dorsalis pedis present GI Inspection: Yes normal to inspection and No Abdominal wall edema Palpation (GI): Soft to palpation, not firm and nontender Auscultation: normal bowel sounds Rectal Exam - Female: deferred General: Yes no CVA tenderness Back/Spine/Pelvis Back: no CVA tenderness Skin General skin exam: no rashes or lesions noted Neuro General: patient oriented x3 Cranial nerves: Yes Equal, round and reactive pupils present, Yes Midline tongue present, Yes Ability to bilaterally elevate shoulders present and No Nystagmus present Gait exam (Neuro): Normal gait present Extrem General: Yes normal to inspection, Yes full ROM, No no pedal edema and No edema Psych Speech and movement: Normal speech and movement present Affect: normal affect Insight: Good insight present (Psych) Judgement: Good judgement present (Psych) Coding Level of Care Code Est Pt Prev Care 18-39y(59531) Diagnoses Annual physical exam Z00.00 Seborrhea capitis L21.0 Abnormal Pap smear of cervix R87.619 Overweight (BMI 25.0-29.9) E66.3 Seasonal allergies J30.2 Insomnia G47.00 Dermatitis L30.9 Assessment & Plan Assessment & Plan (1) Annual physical exam: Code(s): Z00.00 - Encounter for general adult medical examination without abnormal findings Category: Medical Plan: Patient is up-to-date on all recommended routine screenings for her age. She is due for tetanus however our office is out of this and she agrees to obtain this through the pharmacy or through our office at a later date. Ordered for the remainder of updated blood work. Plan to follow up yearly or sooner as needed pending blood work evaluation. (2) Seborrhea capitis: Code(s): L21.0 - Seborrhea capitis Category: Medical Plan: Continue with ketoconazole shampoo as needed (3) Abnormal Pap smear of cervix: Code(s): R87.619 - Unspecified abnormal cytological findings in specimens from cervix uteri Category: Medical Plan: Continue to follow with gynecology (4) Overweight (BMI 25.0-29.9): Code(s): E66.3 - Overweight Category: Medical Plan: Healthy diet and regular exercise is encouraged. (5) Seasonal allergies: Code(s): J30.2 - Other seasonal allergic rhinitis Category: Medical Plan: Continue with Xyzal. (6) Insomnia: Code(s): G47.00 - Insomnia, unspecified Category: Medical Plan: Plan to trial hydroxyzine as needed for insomnia. (7) Dermatitis: Code(s): L30.9 - Dermatitis, unspecified Category: Medical Plan: The patient is advised to use a stronger lotion such as Aquaphor or Eucerin nightly to alleviate the persistent erythema and pruritus on the foot. If symptoms persist, a referral to dermatology may be considered. Plan Patient was informed and verbally consented to the use of an ambient scribe for clinic note documentation during this visit. This note was constructed using voice recognition software. While every effort has been made to ensure accuracy and reel fed printer, still areas may have been included sometimes these areas may affect the content or meeting of the given symptoms. Total time spent caring for the patient today was 30 minutes. This includes time spent before the visit reviewing the chart, time spent during the visit, and time spent after the visit and documentation. Orders: Orders TSH reflex Free T4 Today Z13.29 - Encounter for screening for other suspected endocrine disorder Vitamin B12 and Folate Today Z13.21 - Encounter for screening for nutritional disorder Vitamin D 25-OH Total Today Z13.21 - Encounter for screening for nutritional d isorder Medications: New levocetirizine (Xyzal) 5 mg PO DAILY 90 tabs 0RF hydroxyzine HCl 25 mg PO BEDTIME 90 tabs 0RF
--- OUTSIDE RECORDS SUMMARY | 2025-06-04 18:01 | XMS_ITS | Clinical Summary ---
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 Role Phone Pcp, Unknown Primary Care Provider Unavailabl e Allergies No known active allergies Medications levonorgestrel-eth inyl estradiol (AVIANE,ALESSE,LES MYRA) 0.1-0.02 mg per tablet 01/16/2025 Active Encounters Date Type Department Care Team Description 03/19/2025 8:00 AM EDT Office Visit [facility] at [address] [address] [place], [place] Tick bite of toe [...] Mass Index - - Plan of Treatment Health Maintenance Due Date Last Done Comments DEPRESSION SCREENING 2007 SMOKING Hx and SMOKELESS TOBACCO SCREENING 2008 HEPATITIS C SCREENING 2013 HIV ONE-TIME SCREENING (18-6 5 YEARS) 2013 PAP SMEAR 2016 INFLUENZA VACCINE (#1) 2025 , 09/08/2021, 06/14/2019 Adult Td,Tdap Booster 04/10/2025 04/10/2015 , 04/11/2013 COVID-19 VACCINE (2024-2 6 season) 2025 09/08/2021, 12/18/2020, 11/27/2020 HEPATITIS A VACCINES Aged Out No long [...] topic Medical Devices Not on file Insurance [employer] ADMINISTRATORS [employer]MINISTRAT[employer] ADMINISTRATORS [facility] [employer] [facility] ADMINISTRATORS 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 It is not the complete legal health record.[facility]
== END 2025-06-04 16:35 | disposition home or self-care (01) ==
LOC: HO.HMCH 15:41
DX: Z00.00 Encounter for general adult medical examination without abnormal findings (principal); L21.0 Seborrhea capitis; R87.619 Unspecified abnormal cytological findings in specimens from cervix uteri; E66.3 Overweight; J30.2 Other seasonal allergic rhinitis; G47.00 Insomnia, unspecified; L30.9 Dermatitis, unspecified